=== PATIENT | female | born 1995 | race Caucasian/White ===

== ENCOUNTER 2016-10-25 22:44 | Emergency (ER) | payer MEDICAID ==
--- NOTE | 2016-10-25 22:58 | EDPHY ---
H & P Stated Complaint: pt c/o bodyaches/neck pain/blurry vision x 2 months, skin burning L back HPI/ROS: HPI CHIEF COMPLAINT: Sinus congestion, sore throat, mild cough nonproductive, muscle aches, joint pain, skin sensitivity HISTORY OF PRESENT ILLNESS: This patient very pleasant 21-year-old female she does have significant past medical history for recurrent urinary tract infection , fibromyalgia, endometriosis, presents emergency room at 11 o'clock at night with complaint of over 1 month of intermittent cough, muscle aches, joint pain, skin sensitivity however today she developed sinus congestion, sore throat worsening cough worsening skin sensitivity. She denies actual having a fever. Denies being , denies having abdominal pain chest pain or shortness of breath. She does smoke marijuana daily recently doing more at a [place] then normal she tells me. Denies headache, double vision, blurry vision, stiff neck. Past Medical History: Fibromyalgia, endometriosis, shingles, urinary tract infection, eating disorder, abscess drainage Past Surgical History: denies significant surgical history Social History: Denies use of alcohol or tobacco but does endorse daily marijuana Family History: Noncontributory ROS REVIEW OF SYSTEMS: A comprehensive 10 point review of systems is otherwise negative aside from elements mentioned in the history of present illness. Exam Constitutional appears well, nontoxic, triage nursing summary reviewed, vital signs reviewed, awake/alert. Eyes normal conjunctivae and sclera, EOMI, PERRLA. HENT posterior pharynx normal, tms clear, normal inspection, atraumatic, moist mucus membranes, no epistaxis, neck supple/ no meningismus, no raccoon eyes. Respiratory clear to auscultation bilaterally, normal breath sounds, no respiratory distress, no wheezing. Cardiovascular rate normal, regular rhythm, no murmur, no edema, distal pulses normal. Gastrointestinal soft, non-tender, no rebound, no guarding, normal bowel sounds, no distension, no pulsatile mass. Genitourinary no CVA tenderness. Musculoskeletal no midline vertebral tenderness, full range of motion, no calf swelling, no tenderness of extremities, no meningismus, good pulses, neurovascularly intact. Skin pink, warm, & dry, no rash, skin atraumatic. Neurologic awake, alert and oriented x 3, AAOx3, moves all 4 extremities equally, motor intact, sensory intact, CN II-XII intact, normal cerebellar, normal vision, normal speech. Psychiatric normal mood/affect. Heme/Lymph/Immune no lymphadenopathy. Differential Diagnosis: Includes but is not limited to in a particular order Upper respiratory tract infection, viral illness Medical Decision Making:This patient had an IV established receive IV fluid bolus, check electrolytes, CBC, influenza, urinalysis and chest x-ray Re-evaluation: 2336: re-evaluation at this time patient is resting comfortably no acute distress. Blood work and vitals have been reviewed she is afebrile, chest shows no pneumonia. She has not had any abnormal vital signs. Her influenza a positive most likely the cause of her muscle aches joint pain and sensitive skin. She will be started on Tamiflu. I will allow her to go home she does understand return to the ER if she develops any worsening symptoms include shortness of breath, chest pain, vomiting, high fevers or not feeling well. Prescription for Tamiflu. She understands to stay well-hydrated. ED x-ray chest two view: This is negative for acute cardiopulmonary disease specifically no focal airspace opacification indicating pneumonia with influenza a. Source: Patient - Personal History Tetanus Vaccine Date: 2011 - Medical/Surgical History Hx Asthma: No Hx Chronic Respiratory Disease: No Hx Diabetes: No Hx Cardiac Disease: No Hx Renal Disease: No Hx Cirrhosis: No Hx Alcoholism: No Hx HIV/AIDS: No Hx Splenectomy or Spleen Trauma: No Other PMH: abcess w/ drainage; T&A; B ear tubes; shingles; multiple kidney infections; Possible eating disorders, orif R ankle. - Social History Smoking Status: Never smoked Constitutional: Initial Vital Signs Temperature (C) 37.5 C 10/25/16 22:48 Heart Rate 106 H 10/25/16 22:48 Respiratory Rate 16 10/25/16 22:48 Blood Pressure 113/80 10/25/16 22:48 O2 Sat (%) 98 10/25/16 22:48 O2 Delivery Mode Room Air Allergies/Adverse Reactions: Sulfa (Sulfonamide Antibiotics) Allergy (Verified 10/25/16 22:52) Home Medications: Medication Instructions Recorded Ibuprofen [Motrin (*)] 800 mg PO Q6-8PRN #14 tab 10/25/16 Oseltamivir Phosphate [Tamiflu 75 75 mg PO BID #14 cap 10/25/16 mg (*)] Medical Decision Making - Data Points Laboratory Results: Laboratory Results 10/25/16 23:06 10/25/16 23:06 Medications Given: Discontinued Medications Sodium Chloride (Ns) 1,000 mls @ 0 mls/hr IV ONCE ONE PRN Reason: Wide Open Stop: 10/25/16 23:04 Last Admin: 10/25/16 23:10 Dose: 1,000 mls Oseltamivir Phosphate (Tamiflu) 75 mg PO EDNOW ONE Stop: 10/25/16 23:35 Last Admin: 10/25/16 23:38 Dose: 75 mg Departure - Departure Disposition: Home, Routine, Self-Care Clinical Impression: Influenza A Condition: Good Instructions: Influenza (ED) Additional Instructions: 1. stay well-hydrated drink lots of fluids. 2. return to the emergency room if he develops any worsening symptoms includes high fevers, vomiting, shortness of breath or chest pain 3. take her Tamiflu as prescribed. 4.Take ibuprofen for joint pain, muscle aches and fever control 5.Drink lots of fluids. Referrals: NONE *PRIMARY CARE P,. [Primary Care Provider] - As per Instructions Prescriptions: Ibuprofen [Motrin (*)] 800 mg PO Q6-8PRN #14 tab Oseltamivir Phosphate [Tamiflu 75 mg (*)] 75 mg PO BID #14 cap
[2016-10-25] MEDS ORDERED: NS 1,000 ML IV ONE (23:03)
[2016-10-25 23:10] LABS: COLOR YELLOW; LEUKOCYTE ESTERASE,URINE NEGATIVE (NEGATIVE); NITRITE,URINE NEGATIVE (NEGATIVE)
[2016-10-25 23:18] LABS: % IMMATURE GRANULYOCYTES 0.3 % (0.0-1.1); ABSOLUTE IMMATURE GRANULOCYTES 0.02 10^3/uL (0.00-0.10); ADD DIFF? NO; ADD MORPH? NO; ADD SCAN? NO; ATYPICAL LYMPHOCYTE FLAG 20 (0-99); FRAGMENT RBC FLAG 0 (0-99); HEMATOCRIT 42.9 % (38.0-47.0); HEMOGLOBIN 14.6 g/dL (12.6-16.3); LEFT SHIFT FLG 0 (0-99); LIPEMIA HEMOLYSIS FLAG 90 (0-99); MEAN CELL VOLUME 85.3 fL (81.5-99.8); MEAN PLATELET VOLUME 10.6 fL (8.7-11.7); PLATELET CLUMPS FLAG 0 (0-99); PLATELET COUNT 268 10^3/uL (150-400); RED BLOOD CELL COUNT 5.03 10^6/uL (4.18-5.33); RED CELL DISTRIBUTION WIDTH 12.4 % (11.5-15.2)
[2016-10-25 23:28] LABS: ALANINE AMINOTRANSFERASE 30 IU/L (9-52); ALBUMIN 4.6 g/dL (3.5-5.0); ALKALINE PHOSPHATASE 100 IU/L (38-126); ANION GAP 15 mEq/L (8-16); ASPARTATE AMINOTRANSFERASE 24 IU/L (14-46); BILIRUBIN,TOTAL 0.4 mg/dL (0.1-1.4); CALCIUM 9.6 mg/dL (8.5-10.4); CARBON DIOXIDE 21 mEq/l (22-31); CHLORIDE 106 mEq/L (97-110); CREATININE 0.8 mg/dL (0.6-1.0); GLOMERULAR FILTRATION RATE > 60; GLUCOSE 88 mg/dL (70-100); POTASSIUM 4.1 mEq/L (3.5-5.2); SODIUM 142 mEq/L (134-144); TOTAL PROTEIN 7.9 g/dL (6.3-8.2)
[2016-10-25] MEDS ORDERED: OSELTAMIVIR PHOSPHATE 75 MG CAP PO ONE (23:34)
[2016-10-25] MEDS ORDERED: OSELTAMIVIR PHOSPHATE 75 MG CAP ONE (23:39)
[2016-10-25 23:54] VITALS: BP 117/78; PULSE 88; RESP 12; TEMP 97.9; O2SAT 97
--- NOTE | 2016-10-26 06:35 | DX ---
PA and Lateral Chest October 25, 2016 2251 hours Clinical Indications: Cough. Comparison: September 08, 2013. Findings: The lungs are clear, and no masses are found. The heart and pulmonary vessels are normal. There are no pleural effusions and no pneumothorax. The bones are unremarkable for this age. Impression: Normal.
== END 2016-10-25 23:56 | disposition home or self-care (01) ==
DX: J09.X2 Influenza due to identified novel influenza A virus with other respiratory manifestations (principal)

== ENCOUNTER 2017-01-14 18:41 | Emergency (ER) | payer MEDICAID ==
[2017-01-14 19:20] VITALS: TEMP 98.2
--- NOTE | 2017-01-14 19:39 | EDPHY ---
H & P Chief Complaint Nursing Narrative: pt with neck stiffness/head pressure x 2 weeks. has hx of C1-C2 abscess removal x 2 when she was 13 years old. worried it might be growing back. Time Seen by Provider: 01/14/17 19:24 HPI/ROS: CHIEF COMPLAINT: Neck stiffness and head pressure HISTORY OF PRESENT ILLNESS: The patient is a 21-year-old female who comes to the Urgent Care complaining of head pressure neck stiffness for the last 2 weeks. She is concerned about a recurrent abscess in her neck. 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 She had a fever at the time. She does not have a fever now. She states that her neck has been stiff for about 2 weeks. She has tried massage, ibuprofen, cannabis oral and cannabis edible. None of these have helped with her stiffness. She has not had any neurologic deficits. She does hallucinate after taking that cannabis edible. She denies ear pressure or hearing changes. She denies sinus congestion or recent illness. She also points to her lymph node behind right ear that has been slightly enlarged for the last week. REVIEW OF SYSTEMS: Constitutional: denies: chills, fever, recent illness, recent injury EENTM: denies: blurred vision, double vision, nose congestion Respiratory: denies: cough, shortness of breath Cardiac: denies: chest pain, irregular heart rate, lightheadedness, palpitations Gastrointestinal/Abdominal: denies: abdominal pain, diarrhea, nausea, vomiting, blood streaked stools Genitourinary: denies: dysuria, frequency, hematuria, pain Musculoskeletal: denies: joint pain, muscle pain Skin: denies: lesions, rash, jaundice, bruising Neurological: See HPI Hematologic/Lymphatic: denies: blood clots, easy bleeding, easy bruising Immunologic/allergic: denies: HIV/AIDS, transplant EXAM: GENERAL: Well-appearing, well-nourished and in no acute distress. HEAD: Atraumatic, normocephalic. EYES: Pupils equal round and reactive to light, extraocular movements intact, sclera anicteric, conjunctiva are normal. ENT: TMs normal, nares patent, oropharynx clear without exudates. Moist mucous membranes. NECK: Normal range of motion, supple without lymphadenopathy or JVD. LUNGS: Breath sounds clear to auscultation bilaterally and equal. No wheezes rales or rhonchi. HEART: Regular rate and rhythm without murmurs, rubs or gallops. ABDOMEN: Soft, nontender, normoactive bowel sounds. No guarding, no rebound. No masses appreciated. BACK: No CVA tenderness, no spinal tenderness, step-offs or deformities EXTREMITIES: Normal range of motion, no pitting or edema. No clubbing or cyanosis. NEUROLOGICAL: Cranial nerves II through XII grossly intact. Normal speech, normal gait. 5/5 strength, normal movement in all extremities, normal sensation PSYCH: Normal mood, normal affect. SKIN: Warm, dry, normal turgor, no visible rashes or lesions. Source: Patient Exam Limitations: No limitations - Personal History LMP (Females 10-55): 15-21 Days Ago Current Tetanus Diphtheria and Acellular Pertussis (TDAP): Yes Tetanus Vaccine Date: 2011 - Medical/Surgical History Hx Asthma: No Hx Chronic Respiratory Disease: No Hx Diabetes: No Hx Cardiac Disease: No Hx Renal Disease: No Hx Cirrhosis: No Hx Alcoholism: No Hx HIV/AIDS: No Hx Splenectomy or Spleen Trauma: No Other PMH: abcess w/ drainage; T&A; B ear tubes; shingles; multiple kidney infections; Possible eating disorders, orif R ankle. - Family History Significant Family History: No pertinent family hx - Social History Smoking Status: Never smoked Alcohol Use: Sober Drug Use: None Constitutional: Initial Vital Signs Temperature (C) 36.8 C 01/14/17 19:17 Heart Rate 88 01/14/17 19:17 Respiratory Rate 14 01/14/17 19:17 Blood Pressure 100/70 01/14/17 19:17 O2 Sat (%) 98 01/14/17 19:17 O2 Delivery Mode Room Air Allergies/Adverse Reactions: Sulfa (Sulfonamide Antibiotics) Allergy (Verified 01/14/17 19:16) Home Medications: Medication Instructions Recorded Fish Oil 01/14/17 Medical Decision Making - Diagnostics Imaging: Results: CT scan of the head and cervical spine was obtained. The results of the study are negative. The study was read by Dr. Nicolas Vegas. I viewed the images myself on the PACS system. ED Course/Re-evaluation: The patient is here requesting imaging of her cervical spine to rule out abscess. I think that the likelihood is very low but she does have a history of the same. She is not febrile. We will obtain CT scanning. She has no neurologic deficits. 10:30 p.m. we discussed her CT results. She is relieved. She declines further workup or testing. She is confident this is more musculoskeletal. I agreed. I encouraged her to continue massage and warm compresses and anti-inflammatory use. Discussed indications for returning. Differential Diagnosis: Partial list of the Differential diagnosis considered include but were not limited to; muscle strain, radiculopathy and although unlikely based on the history and physical exam, I also considered concussion, fracture, trauma, infection, cord compression, CVA, thrombus, dissection. I discussed these differential diagnoses and the plan with the patient as well as the usual and expected course. The patient understands that the diagnosis is provisional and that in medicine we are not always correct and that further workup is often warranted. Usual and customary warnings were given. All of the patient's questions were answered. The patient was instructed to return to the emergency department should the symptoms at all worsen or return, otherwise to followup with the physician as we discussed. - Data Points Laboratory Results: 01/14/17 01/14/17 20:10 19:55 POC Hgb 14.3 gm/dL gm/dL (12.3-15.9) POC Hct 42 % % (35.5-47.5) POC Sodium 140 mEq/L mEq/L (134-144) POC Potassium 3.7 mEq/L mEq/L (3.3-5.0) POC Chloride 105 mEq/L mEq/L (96-108) POC BUN 15 mg/dL mg/dL (7-23) POC Creatinine 0.8 mg/dL mg/dL (0.6-1.2) POC Glucose 82 mg/dL mg/dL (70-100) Urine Test NEGATIVE Point of Care Test Results: 01/14/17 19:55 POC Sodium 140 POC Potassium 3.7 POC Chloride 105 POC BUN 15 POC Creatinine 0.8 POC Glucose 82 Departure - Departure Disposition: Home, Routine, Self-Care Clinical Impression: Neck muscle strain Qualifiers: Encounter type: initial encounter Qualified Code(s): S16.1XXA - Strain of muscle, fascia and tendon at neck level, initial encounter Condition: Fair Instructions: Neck Pain (ED) Referrals: Daisha Barbosa MD [Medical Doctor] - As per Instructions
[2017-01-14] MEDS ORDERED: IOPAMIDOL (ISOVUE-300) 100 ML BTL IV ONE (20:14)
[2017-01-14 23:24] VITALS: BP 105/64; PULSE 78; RESP 16; O2SAT 97
== END 2017-01-14 23:00 | disposition home or self-care (01) ==
LOC: CED 18:41
DX: S16.1XXA Strain of muscle, fascia and tendon at neck level, initial encounter (principal); X58.XXXA Exposure to other specified factors, initial encounter
CPT/HCPCS: 70450-PO; 70460-PO; 70491-PO; 81025-PO; 82947-QW; G0463-PO; Q9967